=== PATIENT | female | born 1985 | race Caucasian/White ===

== ENCOUNTER 2020-12-05 15:53 | Observation (INO) | payer BC ==
[~2020-12-05] VITALS: Ht 167.6 cm; Wt 87.3 kg
[~2020-12-05 15:53] MED LIST: SUGAMMADEX 200 MG/2 ML IVPush ONE
--- NOTE | 2020-12-05 17:10 | NUR ---
PT TO ROOM FROM LOBBY
[2020-12-05 17:17] LABS: MEAN CORPUSCULAR HEMOGLOBIN 30.7 pg (27.0-34.8); MEAN CORPUSCULAR HGB CONC 34.4 g/dL (32.4-35.8); MEAN PLATELET VOLUME 8.9 fL (7.4-10.4); PLATELET COUNT 198 x10^3/uL (130-400); RED BLOOD COUNT 4.44 x10^6/uL (3.82-5.3)
[2020-12-05 17:30] LABS: ALBUMIN 3.7 g/dL (3.4-5.0); ANION GAP 5 mmol/L (5-15); CALCIUM 8.7 mg/dL (8.5-10.1); CHLORIDE 105 mmol/L (98-107)
[2020-12-05 17:35] LABS: ALANINE AMINOTRANSFERASE 23 U/L (12-78); ALKALINE PHOSPHATASE 64 U/L (45-117); BILIRUBIN,TOTAL 0.6 mg/dL (0.2-1.0); CREATININE 0.77 mg/dL (0.55-1.02); TOTAL PROTEIN 7.2 g/dL (6.4-8.2)
--- NOTE | 2020-12-05 17:42 | NUR ---
PT PRESENTS TO ED WITH GENERALIZED ABD PAIN, NAUSEA AND FEVER SINCE YESTERDAY. PT DENIES PMH. PT DENIES SORE THROAT, COUGH. DENIES DIARRHEA AND VOMITING. PT IS A&O, RESPS EVEN AND UNLABORED. ALL MONITORS IN PLACE, SINUS TACH ON PSYCHIATRIC TECHNICIAN, RATE 90'S WITH NO ECTOPY. PT INSTRUCTED TO PROVIDE CLEAN CATCH UA WHEN ABLE. PT AWAITING CT, LAB AND DISPO.
[2020-12-05 17:51] LABS: MD YES
[2020-12-05 17:53] LABS: BAND#(MANUAL) 0.64 x10^3/uL; BANDS%(MANUAL) 4 % (0-7); EOS#(MANUAL) 0.16 x10^3/uL (0.0-0.4); EOS% (MANUAL) 1 % (1-7); LYMPH#(MANUAL) 0.95 x10^3/uL (1-3.4); LYMPHS% (MANUAL) 6 % (22-44); MONOS#(MANUAL) 1.27 x10^3/uL (0.3-2.7); MONOS% (MANUAL) 8 % (2-9); SEG#(MANUAL) 12.88 x10^3/uL (1.8-6.8); SEGS% (MANUAL) 81 % (42-75)
[2020-12-05 17:54] LABS: <PLATELET ESTIMATE> ADEQUATE; <PLT MORPHOLOGY> NORMAL PLT MORPH; <RBC MORPHOLOGY> NORMAL
[2020-12-05] MEDS ORDERED: MORPHINE SULFATE 4 MG/ML, 1ML IVPush PRN (18:00)
[2020-12-05] MEDS ORDERED: ONDANSETRON 2MG/ML, 2ML IVPush ONE (18:00)
--- NOTE | 2020-12-05 18:04 | NUR ---
PIV ATTEMPTED X 2 BY THIS RN, UNSUCCESSFUL. TASK RN AT BEDSIDE TO START IV FOR CT.
[2020-12-05] MEDS ORDERED: MORPHINE SULFATE 4 MG/ML, 1ML ONE (18:11)
[2020-12-05] MEDS ORDERED: ONDANSETRON 2MG/ML, 2ML ONE ×2 (18:11→21:11)
[2020-12-05] MEDS ORDERED: OMNIPAQUE 350 MG/ML, 100ML BOTTLE ONE (18:31)
--- NOTE | 2020-12-05 18:32 | NUR ---
PT BACK FROM CT.
--- NOTE | 2020-12-05 18:59 | NUR ---
REPORT FROM LORRAINE VIDALES
[2020-12-05] MEDS ORDERED: SODIUM CHLORIDE 0.9% 1,000ML IVBOLUS ONE (19:00)
[2020-12-05] MEDS ORDERED: PIPERACILLIN/TAZO/PMX 3.375GM 50 ML IV ONE (19:00)
--- NOTE | 2020-12-05 19:04 | NUR ---
REPORT GIVEN TO FLASH BAEZA AT BEDSIDE. PT A&O, RESPS EVEN AND UNLABORED, STATES PAIN RELEIVED S/P MORPHINE. BP AND SPO2 MONITORS IN PLACE. PT STATES SHE HAS BEEN INFORMED OF CT RESULTS AND POC BY MD. AWAITING ADMIT ORDER AND ROOM ASSIGNMENT. PT AGREEABLE.
--- NOTE | 2020-12-05 19:07 | NUR ---
MD ROBLERO NOTIFIED PT MEETING SEPSIS CRITERIA W ELEVATED HR AND WBC. DECLINES TO ORDER BLOOD CULTURES AND SEPSIS PROTOCOL SOURCE IS KNOWN.
[2020-12-05 19:10] LABS: MICROSCOPIC INDICATED
[2020-12-05] MEDS ORDERED: D5%-0.45NACL+KCL 20MEQ 1,000 ML IV ONE (19:30)
[2020-12-05] MEDS ORDERED: PIPERACILLIN/TAZO/PMX 3.375GM 50 ML ONE (19:39)
--- NOTE | 2020-12-05 19:45 | NUR ---
REPORT GIVEN TO CLAIMS PROCESSOR. WILL BE DOWN TO GRAB PT AFTER COVID RESULT IS BACK
[2020-12-05] MEDS ORDERED: BUPIVACAINE/PF 0.5% ONE (19:52)
[2020-12-05] MEDS ORDERED: EPINEPHRINE 1 MG/ML, 1ML ONE (19:53)
[2020-12-05] MEDS ORDERED: FENTANYL PF 100 MCG/2ML ONE ×3 (20:21→21:49)
[2020-12-05] MEDS ORDERED: MIDAZOLAM 1 MG/ML, 2ML ONE (20:21)
[2020-12-05] MEDS ORDERED: KETOROLAC 30 MG/1 ML ONE (20:27)
[2020-12-05] MEDS ORDERED: LIDOCAINE-MPF 2% ,5ML ONE (20:27)
[2020-12-05] MEDS ORDERED: LORazepam 2 MG/ML, 1ML IVPush PRN (20:30)
[2020-12-05] MEDS ORDERED: PROMETHAZINE 25 MG/ML, 1ML IVPush PRN (20:30)
[2020-12-05] MEDS ORDERED: LABETALOL 5MG/ML, 20ML IV PRN (20:30)
[2020-12-05] MEDS ORDERED: hydrALAzine 20 MG/ML, 1ML IV PRN (20:30)
[2020-12-05] MEDS ORDERED: MEPERIDINE/PF 25MG/0.5ML IVPush PRN (20:30)
[2020-12-05] MEDS ORDERED: ACETAMINOPHEN 325 MG TABLET PO PRN (20:30)
[2020-12-05] MEDS ORDERED: OXYcodone 5 MG/5 ML ORAL.SOL UDC PO PRN (20:30)
[2020-12-05] MEDS ORDERED: HYDROmorphone 1 MG/ML, 1ML INJ IVPush PRN ×2 (20:30→23:00)
[2020-12-05] MEDS ORDERED: ALBUTEROL SULFATE 2.5 MG/3 ML NPPB PRN (20:30)
[2020-12-05] MEDS ORDERED: CEFAZOLIN 1,000 MG ONE (21:11)
[2020-12-05] MEDS ORDERED: DEXAMETHASONE 4 MG/ML, 1ML ONE (21:11)
[2020-12-05] MEDS ORDERED: GLYCOPYRROLATE 0.2MG/1ML, 5ML ONE (21:11)
[2020-12-05] MEDS ORDERED: ROCURONIUM 10MG/ML,5ML ONE (21:11)
[2020-12-05] MEDS ORDERED: NEOSTIGMINE 1 MG/ML, 10ML ONE (21:11)
[2020-12-05] MEDS ORDERED: PROPOFOL 10 MG/ML, 20ML ONE (21:11)
[2020-12-05] MEDS ORDERED: OXYC5TAB98 PO (21:30)
[2020-12-05] MEDS ORDERED: AMOX1TAB61 PO (21:32)
[2020-12-05] MEDS ORDERED: OXYcodone 5 MG/5 ML ORAL.SOL UDC ONE (21:49)
[2020-12-05] MEDS: FENTANYL PF 100 MCG/2ML IV PRN ×2 (21:50→21:55)
[2020-12-05 22:49] VITALS: BP 109/68
[2020-12-05] MEDS ORDERED: ONDANSETRON ODT 4 MG PO PRN (23:00)
[2020-12-05] MEDS ORDERED: ONDANSETRON 2MG/ML, 2ML IVPush PRN (23:00)
[2020-12-05] MEDS: SODIUM CHLORIDE 0.9% 1,000 ML IV SCH (23:00)
[2020-12-05] MEDS ORDERED: OXYcodone IR 5MG TABLET PO PRN (23:00)
[2020-12-06] MEDS: KETOROLAC 30 MG/1 ML IV PRN ×2 (00:09→05:54)
[2020-12-06] MEDS: AMOXICILLIN/CLAV 500-125MG TABLET PO SCH ×2 (00:10→09:07)
[2020-12-06] MEDS: ACETAMINOPHEN 325 MG TABLET PO SCH ×3 (00:10→12:27)
[2020-12-06 03:34] VITALS: BP 97/64
[2020-12-06 07:03] VITALS: BP 102/69
[2020-12-06] MEDS: SODIUM CHLORIDE 0.9% 1,000 ML IV SCH (09:00)
[2020-12-06 13:41] VITALS: BP 102/68
== END 2020-12-06 13:59 | disposition home or self-care (01) ==
LOC: ED 19:35 → INTOOBSV 19:48 → EDIP 19:48 → 4NE 22:32 → DCLOUNGE 12-06 13:47
PROVIDERS: ADMIT Surgery; ATTEND Surgery
DX: K35.80 Unspecified acute appendicitis (principal); Z20.822 Contact with and (suspected) exposure to COVID-19
CPT/HCPCS: 36415; 44970; 74177; 80053; 81001; 83690; 84703; 85025; 87086; 87186; 87635; 88304; 96365; 96375; 96376; 99285; G0378; J0171; J0690; J1100; J1885; J2250; J2270; J2405; J2543; J2704; J2710; J3010; J3480; J3490; J7030; Q9967; S0020